=== PATIENT | female | born 1980 ===

== ENCOUNTER 2018-04-19 08:50 | Inpatient (IN) | payer MEDICAID, OTHER ==
[2018-04-19 09:06] VITALS: BMI 31.8
--- NOTE | 2018-04-19 10:20 | ED PDOC ---
HPI: Psych/Substance Abuse Time Seen by Provider: 04/19/18 09:30 Chief Complaint (Nursing): Psychiatric Evaluation Chief Complaint (Provider): Psychiatric evaluation History Per: Patient History/Exam Limitations: no limitations Onset/Duration Of Symptoms: Days (yesterday) Current Symptoms Are (Timing): Still Present Additional Complaint(s): 37 year old female presents to the ED complaining of hearing voice since yesterday. Patient reports the voices do not tell her to do anything and the voices have been on and off for a long time. She has been taking medications for psychiatric problems. Denies suicidal ideation, homicidal ideation, depression, and anxiety. Patient has no medical complaints at this time. Past Medical History Reviewed: Historical Data, Nursing Documentation, Vital Signs Vital Signs: Last Vital Signs Temp 98.3 F 04/19/18 09:04 Pulse 106 H 04/19/18 09:04 Resp 18 04/19/18 09:04 BP 95/62 L 04/19/18 09:04 Pulse Ox 95 04/19/18 09:04 - Medical History PMH: Schizophrenia Denies: Diabetes, Hepatitis, HIV, HTN, Chronic Kidney Disease, Seizures, Sexually Transmitted Disease - Family History Family History: States: Unknown Family Hx - Social History Alcohol: None Drugs: Denies - Home Medications Home Medications: Ambulatory Orders Medication Instructions Recorded Divalproex Sodium [Divalproex 500 mg PO HS 02/18/17 Sodium ER] Olanzapine [Zyprexa] 15 mg PO HS 02/18/17 - Allergies Allergies/Adverse Reactions: Allergies Allergy/AdvReac Type Severity Reaction Status Date / Time paliperidone [From Invega] Allergy FATIGUE Verified 04/20/18 06:24 Review of Systems ROS Statement: Except As Marked, All Systems Reviewed And Found Negative Psych: Positive for: Other (Hearing voices). Negative for: Anxiety, Depression , Suicidal ideation (and homicidal ideation) Physical Exam - Reviewed Nursing Documentation Reviewed: Yes Vital Signs Reviewed: Yes - Physical Exam Appears: Positive for: Non-toxic, No Acute Distress Head Exam: Positive for: ATRAUMATIC, NORMOCEPHALIC Skin: Positive for: Normal Color, Warm, Dry Eye Exam: Positive for: Normal appearance Neck: Positive for: Normal, Painless ROM Cardiovascular/Chest: Positive for: Regular Rate, Rhythm. Negative for: Murmur Respiratory: Positive for: Normal Breath Sounds. Negative for: Wheezing, Respiratory Distress Extremity: Positive for: Normal ROM Neurologic/Psych: Positive for: Alert, Oriented. Negative for: Motor/Sensory Deficits - Laboratory Results Result Diagrams: 04/19/18 15:08 04/19/18 15:08 - ECG O2 Sat by Pulse Oximetry: 95 (RA) Pulse Ox Interpretation: Normal Medical Decision Making Medical Decision Making: Initial Impression: Auditory hallucination, hearing voices Initial Plan: Crisis evaluation Vital signs are stable. Labs reviewed. In my opinion there are no current acute medical conditions that contraindicate the placement of this patient in a psychiatric unit. Time: 1357 CXR RESULTS FINDINGS: LUNGS: No active pulmonary disease. PLEURA: No significant pleural effusion identified. No pneumothorax apparent. CARDIOVASCULAR: Normal. OSSEOUS STRUCTURES: No significant abnormalities. VISUALIZED UPPER ABDOMEN: Normal. OTHER FINDINGS: None. IMPRESSION: No active disease. Scribe Attestation: Documented by Bishnu Lorenzo acting as a scribe for Lynette Vera MD. Provider Scribe Attestation: All medical record entries made by the Scribe were at my direction and personally dictated by me. I have reviewed the chart and agree that the record accurately reflects my personal performance of the history, physical exam, medical decision making, and the department course for this patient. I have also personally directed, reviewed, and agree with the discharge instructions and disposition. Disposition - Clinical Impression Clinical Impression: Schizophrenia - Patient ED Disposition Is Patient to be Admitted: Yes Counseled Patient/Family Regarding: Studies Performed, Diagnosis - Disposition Disposition Time: 18:00 Condition: FAIR - Pt Status Changed To: Hospital Disposition Of: Inpatient - Admit Certification Admit to Inpatient:: After my assessment, the patient will require hospitalization for at least two midnights. This is because of the severity of symptoms shown, intensity of services needed, and/or the medical risk in this patient being treated as an outpatient. - POA Present On Arrival: None
--- NOTE | 2018-04-19 13:39 | RAD ---
Date of service: 04/19/2018 HISTORY: medical clearance COMPARISON: 02/18/2017 TECHNIQUE: Chest PA and lateral FINDINGS: LUNGS: No active pulmonary disease. PLEURA: No significant pleural effusion identified. No pneumothorax apparent. CARDIOVASCULAR: Normal. OSSEOUS STRUCTURES: No significant abnormalities. VISUALIZED UPPER ABDOMEN: Normal. OTHER FINDINGS: None. IMPRESSION: No active disease.
[2018-04-19 15:18] LABS: BASO % 0.4 % (0.0-2.0); EOS # 0.1 K/uL (0.0-0.7); EOS % 1.4 % (0.0-4.0); HEMOGLOBIN 11.6 g/dL (12.0-16.0); LYMPH # 1.7 K/uL (1.0-4.3); LYMPH % 18.2 % (20.0-40.0); MEAN CELL VOLUME 90.7 fl (81.0-99.0); MEAN CORPUSCULAR HEMOGLOBIN 30.3 pg (27.0-31.0); MEAN CORPUSCULAR HGB CONC 33.5 g/dL (33.0-37.0); MONO % 10.8 % (0.0-10.0); NEUT # 6.3 K/uL (1.8-7.0); NEUT % 69.2 % (50.0-75.0); RBC 3.82 Mil/uL (3.80-5.20); RED CELL DISTRIBUTION WIDTH 13.9 % (11.5-14.5); WHITE BLOOD COUNT 9.1 K/uL (4.8-10.8)
[2018-04-19 15:29] LABS: BLOOD UREA NITROGEN 10 mg/dl (7-17); GFR NON-AFRICAN AMERICAN > 60
[2018-04-19 15:46] LABS: BARBITURATES, UR NEGATIVE (NEGATIVE); BENZODIAZEPINES, UR NEGATIVE (NEGATIVE); OPIATES, UR NEGATIVE (NEGATIVE); PHENCYCLIDINE, UR NEGATIVE (NEGATIVE)
[2018-04-19] MEDS ORDERED: Alum-Mag Hydrox-Simethicone Susp (30 mL) PO PRN (23:06)
[2018-04-19] MEDS ORDERED: DiphenhydrAMINE 50 mg/ml Inj IM PRN (23:06)
[2018-04-19] MEDS ORDERED: Magnesium Hydroxide Susp 30 ml UD PO PRN (23:06)
--- NOTE | 2018-04-20 00:19 | PCM.BM ---
<JamilBrittany C - Last Filed: 04/20/18 00:17> Treatment Plan Problems - Problems identified on initial assessmt Medication nonadherence Date Initiated: 04/20/18 Time Initiated: 00:18 Assessment reference: NA Status: Active Auditory Hallucinations Date Initiated: 04/20/18 Time Initiated: 00:18 Assessment reference: NA Status: Active Treatment assets and liabiliti Patient Assests: cooperative, self-reliant, ADL independent, physically healthy , good support system, negotiates basic needs Patient Liabilities: other (Medication non-compliance) - Milieu Protocol Maintain good personal hygiene: daily Encourage regular showers, every shift Remind patient to perform daily oral care Conduct patient checks and document Observation sheet: Q15 minutes Maintain personal safety: every shift Educate patient to report safety concerns to staff, every shift Monitor environment for contraband/sharps Medication safety: Monitor for expected outcome, potential side effects: every shift, Assess barriers to learning: every shift, Assess readiness for medication education: every shift <Rafiq Roberts - Last Filed: 04/24/18 14:09> Family Contact Family involvement: Family/SO is involved Family contact: Patient agrees to contact, Family has been contacted by patient , Telephone contact initiated by staff Family contact name: Kevin Mccormack [phone] Family contacted how many times per week?: 2 Family contact comment: Computing Architect spoke with pt's , Kevin ([phone]), who reported that he did not even know that pt was at the hospital until she called him from the unit. Kevin reported that he was unaware that pt was even having symptoms except for seeing her talk to herself "a little" the day before admission, but he was not concerned. Kevin reported that he has spoken to the pt on the unit and he feels she is "ok." Kevin reported he would like to pick pt up once she is stabilized. Computing Architect explained that Depakote level will be taken on to ensure that medication is at a therapeutic level. - Goals for Treatment Patient goals for treatment: Pt offered no goals for herself at this time, however, pt lacks apparent insight into her illness. Discharge/Continuing Care - Education Needs Education Needs: Family Medication, Family Diagnosis/Disease Process, Family Coping Skills, Family Community resources, Family Aftercare Safety Plan, Patient Medication, Patient Diagnosis/Disease Process, Patient Coping Skills, Patient Community resources, Patient Aftercare Safety Plan - Discharge Discharge Criteria: Tolerates medication w/o severe side effects, Free of paranoid thoughts, Free of agitation, Normal sleep pattern, Ability to care for self, Reduction of target symptoms Discharge to:: Home, With Family - Treatment Team Participation Patient/Family/SO Statement: 04/24/18 14:12 Pt was seen in treatment on 04/23/18. Pt denied any questions or concerns and was vague at presentation. Pt reported that she does talk to herself and this is not due to hallucinations, but only a coping skill she has for herself. Medications and follow-up discussed. Discussed with Family/SO: Yes Was Patient/Family/SO present at Treatment Team Meeting: Yes <Gael Beth - Last Filed: 04/26/18 08:41> - Diagnosis (1) Auditory hallucination Status: Acute Interventions: pharmacotherapy 04/26/18 08:40
[2018-04-20] MEDS: Levothyroxine 75 MCG TAB PO SCH (07:50)
[2018-04-20 08:24] LABS: T4 8.2 ug/dl (5.5-11.0)
--- NOTE | 2018-04-20 09:05 | PCM.PSYCH ---
Initial Psychiatric Evaluation - Initial Psychiatric Evaluation Type of Admission: Voluntary Legal Status: Capacity Chief Complaint (in patient's own words): pt has h/o schizoaffective disorder who has been admitted because of hearing voices telling her she is the bride of bala and pt has been noncompliant with meds.pt has been prescribed zyprexa 15 mg hs and depakote 1000 mg hs Current Medications: Active Medications Generic Name Dose Route Start Last Admin Trade Name Freq PRN Reason Stop Dose Admin Acetaminophen 650 mg 04/19/18 23:06 Tylenol 325mg Tab PO Q4 PRN Pain, moderate (4-7) Al Hydrox/Mg Hydrox/Simethicone 30 ml 04/19/18 23:06 Maalox Plus 30 Ml PO Q4 PRN Dyspepsia Diphenhydramine HCl 50 mg 04/19/18 23:06 Benadryl IM Q6 PRN Extrapyramidal S/S Unable PO Diphenhydramine HCl 50 mg 04/19/18 23:11 Benadryl PO HS PRN Sleep Haloperidol 5 mg 04/19/18 23:06 Haldol PO Q4 PRN Agitation Haloperidol Lactate 5 mg 04/19/18 23:06 Haldol IM Q4 PRN Agitation, Unable to Take PO Levothyroxine Sodium 75 mcg 04/20/18 06:30 04/20/18 07:50 Synthroid PO 75 mcg DAILY@0630 STEFANIE Administration Lorazepam 1 mg 04/19/18 23:18 Ativan PO Q6H PRN Agitation Magnesium Hydroxide 30 ml 04/19/18 23:06 Milk Of Magnesia PO HS PRN Constipation Past Psychiatric History - Past Psychiatric History Previous Treatment History: Inpatient (8 times) At [facility]: 8 times ,last admitted [place] [facility] [place] last time due to psychosis Nature of Treatment: psychosis History of Abuse: pt denies History of ETOH/Drug Use: pt denies History of Family Illness: denies Pertinent Medical Hx (Current Medical&Sleep Prob, Allergies): Allergies Allergy/AdvReac Type Severity Reaction Status Date / Time paliperidone [From Invega] Allergy FATIGUE Verified 04/20/18 06:24 Divalproex Sodium [Divalproex Sodium ER] 500 mg PO HS 02/18/17 Olanzapine [Zyprexa] 15 mg PO HS 02/18/17 hypothyroidism Review of Systems - Review of Systems All systems: reviewed and no additional remarkable complaints except Mental Status Examination - Personal Presentation Personal Presentation: Looks stated age - Affect Affect: Constricted - Motor Activity Motor Activity: Other - Reliability in Providing Information Reliability in Providing Information: Poor, due to alteration in thoughts - Speech Speech: Disorganized - Mood Mood: Anxious - Formal Thought Process Formal Thought Process: Hallucinations, Paranoia - Hallucinations/Delusions Hallucinations: Auditory - Obsessions/Compulsions Obsessions: No Compulsions: No - Cognitive Functions Orientation: Person, Place, Situation, Time Attention/Concentration: Easily distracted Abstract Thinking: Gustine Memory: Recent intact, as evidence by: Ability to recall events of the day, Remote intact, as evidenced by: Ability to recall historical events - Risk Risk: Diminished functioning - Strength & Assets Inventory Strength & Assets Inventory: Family support DSM 5 DX - DSM 5 DSM 5 Diagnosis: schizaffective disorder ,bipolar - Recommended/Plan of Treatment Treatment Recommendations and Plan of Treatment: will restart depakote and zyprexa and check valproic acid levels. hospitalist consult to adjust meds for hypothyroidism
--- NOTE | 2018-04-20 09:44 | CARD ---
APPROVED REPORT Date of service: 04/19/2018 <Conclusion> Normal sinus rhythm T wave abnormality, consider anterior ischemia Abnormal ECG
--- NOTE | 2018-04-20 18:25 | CP.PCM.CON ---
History of Present Illness - History of Present Illness History of Present Illness: 37 yo female with history of schizoaffective DO admitted to psyche unit because of hearing voices. Review of Systems - Review of Systems All systems: reviewed and no additional remarkable complaints except (aside from those mentioned above, 12 point system review were negative by me) Past Patient History - Past Social History Smoking Status: Never Smoked Chewing Tobacco Use: No Cigar Use: No Alcohol: None Drugs: Denies - CARDIAC Hx Cardiac Disorders: No Hx Hypertension: No - PULMONARY Hx Respiratory Disorders: No Hx Tuberculosis: No - NEUROLOGICAL Hx Neurological Disorder: No Hx Seizures: No - HEENT Hx HEENT Problems: No - RENAL Hx Chronic Kidney Disease: No - ENDOCRINE/METABOLIC Hx Endocrine Disorders: Yes Other/Comment: Thyroid problem- pt unsure if hypo or hyper - HEMATOLOGICAL/ONCOLOGICAL Hx Blood Disorders: No Hx Human Immunodeficiency Virus (HIV): No - INTEGUMENTARY Hx Dermatological Problems: No - MUSCULOSKELETAL/RHEUMATOLOGICAL Hx Musculoskeletal Disorders: No - GASTROINTESTINAL Hx Gastrointestinal Disorders: No - GENITOURINARY/GYNECOLOGICAL Hx Genitourinary Disorders: No Hx Sexually Transmitted Disorders: No - PSYCHIATRIC Hx Substance Use: No - SURGICAL HISTORY Hx Surgeries: No - ANESTHESIA Hx Anesthesia: No Meds Allergies/Adverse Reactions: Allergies Allergy/AdvReac Type Severity Reaction Status Date / Time paliperidone [From Invega] Allergy FATIGUE Verified 04/20/18 06:24 - Medications Medications: Current Medications Acetaminophen (Tylenol 325mg Tab) 650 mg PO Q4 PRN PRN Reason: Pain, moderate (4-7) Al Hydrox/Mg Hydrox/Simethicone (Maalox Plus 30 Ml) 30 ml PO Q4 PRN PRN Reason: Dyspepsia Diphenhydramine HCl (Benadryl) 50 mg IM Q6 PRN PRN Reason: Extrapyramidal S/S Unable PO Diphenhydramine HCl (Benadryl) 50 mg PO HS PRN PRN Reason: Sleep Divalproex Sodium (Depakote Er(Once Daily)) 1,000 mg PO HS STEFANIE Haloperidol (Haldol) 5 mg PO Q4 PRN PRN Reason: Agitation Haloperidol Lactate (Haldol) 5 mg IM Q4 PRN PRN Reason: Agitation, Unable to Take PO Levothyroxine Sodium (Synthroid) 75 mcg PO DAILY@0630 [facility] Last Admin: 04/20/18 07:50 Dose: 75 mcg Lorazepam (Ativan) 1 mg PO Q6H PRN PRN Reason: Agitation Magnesium Hydroxide (Milk Of Magnesia) 30 ml PO HS PRN PRN Reason: Constipation Olanzapine (Zyprexa) 15 mg PO HS STEFANIE Physical Exam - Constitutional Appears: No Acute Distress - Head Exam Head Exam: ATRAUMATIC - Eye Exam Eye Exam: absent: Scleral icterus - ENT Exam ENT Exam: Mucous Membranes Moist - Neck Exam Neck exam: Negative for: Meningismus - Respiratory Exam Respiratory Exam: absent: Rales, Rhonchi, Wheezes, Respiratory Distress - Cardiovascular Exam Cardiovascular Exam: REGULAR RHYTHM, +S1, +S2 - GI/Abdominal Exam GI & Abdominal Exam: Soft (bulging tummy). absent: Tenderness - Rectal Exam Rectal Exam: Deferred - Extremities Exam Extremities exam: Negative for: calf tenderness, pedal edema - Back Exam Back exam: NORMAL INSPECTION - Neurological Exam Neurological exam: Alert, Oriented x3 - Psychiatric Exam Psychiatric exam: Normal Affect - Skin Skin Exam: Dry, Intact Results - Vital Signs Recent Vital Signs: Last Vital Signs Temp 97.7 F 04/20/18 09:00 Pulse 81 04/20/18 09:00 Resp 18 04/20/18 09:00 BP 101/70 04/20/18 09:00 Pulse Ox 100 04/19/18 22:29 - Labs Result Diagrams: 04/19/18 15:08 04/19/18 15:08 Labs: Laboratory Results - last 24 hr 04/20/18 07:00 Triglycerides 164 H Cholesterol 197 LDL Cholesterol Direct 133 H HDL Cholesterol 31 Thyroxine (T4) 8.20 TSH 3rd Generation 6.46 H Assessment & Plan (1) Auditory hallucination Status: Acute Comment: psyche is managing
[2018-04-20 19:28] VITALS: O2SAT 95
[2018-04-20] MEDS: Divalproex 500 mg ER (ONCE DAILY formulation) PO SCH (21:19)
[2018-04-21] MEDS: Levothyroxine 75 MCG TAB PO SCH (06:36)
--- NOTE | 2018-04-21 12:30 | PCM.PYCHPN ---
Psychiatric Progress Note - Psychiatric Progress Note Patient Chief Complaint: pt has h/o schizoaffective disorder who has been admitted because of hearing voices telling her she is the bride of bala and pt has been noncompliant with meds.pt has been prescribed zyprexa 15 mg hs and depakote 1000 mg hs Mental Status Examination - Cognitive Function Orientation: Person, Place, Situation, Time - Mood Mood: Anxious - Affect Affect: Constricted - Formal Thought Process Formal Thought Process: Hallucinations, Paranoia - Homicidal Ideation Homicidal Ideation: No Goal/Treatment Plan - Goal/Treatment Plan Progress Toward Problem(s) and Goals/Treatment Plan: will restart depakote and zyprexa and check valproic acid levels. hospitalist consult to adjust meds for hypothyroidism
[2018-04-21] MEDS: Divalproex 500 mg ER (ONCE DAILY formulation) PO SCH (21:13)
[2018-04-22] MEDS: Levothyroxine 75 MCG TAB PO SCH (06:27)
[2018-04-22] MEDS: Divalproex 500 mg ER (ONCE DAILY formulation) PO SCH (21:06)
[2018-04-23] MEDS: Levothyroxine 75 MCG TAB PO SCH (06:32)
--- NOTE | 2018-04-23 14:41 | PCM.PYCHPN ---
Psychiatric Progress Note - Psychiatric Progress Note Patient seen today, length of contact: pt evaluated discussed with team chart reviewed Patient Chief Complaint: I was not taking my medicine Problems Identified/Issues Discussed: pt on evaluation, guarded, evasive, unkempt, dressed in hospital gown, appears internally preoccupied, denied command hallucinations, but presenting with thought block. isolative needs encouragement to attend groups, denied any current suicidal thoughts, denied side effects of medications DSM 5 Symptoms Update: schizoaffective disorder bipolar Medication Change: No Medical Record Reviewed: Yes Mental Status Examination - Cognitive Function Orientation: Person, Place, Situation, Time Memory: Intact Attention: WNL Concentration: Poor Association: WNL Fund of Knowledge: Poor Decription of patient's judgement and insights: partial insight poor judgment - Mood Mood: Depressed, Anxious - Affect Affect: Constricted - Speech Speech: Soft - Formal Thought Process Formal Thought Process: Hallucinations, Paranoia Psychotic Thoughts and Behaviors: pt reported non command - Homicidal Ideation Homicidal Ideation: No
--- NOTE | 2018-04-23 14:58 | PCM.PYCHPN ---
Psychiatric Progress Note - Psychiatric Progress Note Patient seen today, length of contact: pt evaluated discussed with team chart reviewed Patient Chief Complaint: the voices now tell me I am a good girl Problems Identified/Issues Discussed: pt evaluated with treatment team, continues to be guarded and evasive in reference to her psychiatric history, pt denied perceptual disturbances, yet observed by staff talking to self and responding to internal stimuli, presenting with thought blocking , not attending to personal hygiene discussed with pt increasing zyprexa to 20mg,encouraged pt to attend groups consent obtained to speak to for collateral information pt denied command hallucinations denied suicidal or homicidal ideation DSM 5 Symptoms Update: schizoaffective disorder depressed Medication Change: Yes (increse zypexa ) Medical Record Reviewed: Yes Mental Status Examination - Cognitive Function Orientation: Person, Place, Situation, Time Memory: Intact Attention: WNL Concentration: Poor Association: WNL Fund of Knowledge: Poor Decription of patient's judgement and insights: partial insight poor judgment - Mood Mood: Depressed, Anxious - Affect Affect: Constricted - Speech Speech: Soft - Formal Thought Process Formal Thought Process: Hallucinations, Paranoia Psychotic Thoughts and Behaviors: pt reported non command a, internally preoccupieduditory hallucinations - Suicidal Ideation Suicidal Ideation: No - Homicidal Ideation Homicidal Ideation: No Goal/Treatment Plan - Goal/Treatment Plan Need for Continued Stay: Discharge may exacerbated symptoms, Failed transitioning, Severe functional impairment Progress Toward Problem(s) and Goals/Treatment Plan: increase zyprexa 20mg qhs depakote 1000mg qhs , follow up on depakote level obtain collateral information group and supportive therapy
[2018-04-23] MEDS: Divalproex 500 mg ER (ONCE DAILY formulation) PO SCH (21:01)
[2018-04-24] MEDS: Levothyroxine 75 MCG TAB PO SCH (06:55)
--- NOTE | 2018-04-24 15:34 | PCM.PYCHPN ---
Psychiatric Progress Note - Psychiatric Progress Note Patient seen today, length of contact: pt evaluated discussed with team chart reviewed Patient Chief Complaint: the voices are going away Problems Identified/Issues Discussed: pt evaluated . appears better groomed and attending more to her personal hygiene , reported feeling too sedated with increasing the dose of zyprexa, will be reduced to 15mg qhs , pt more visible on the unit , less isolative, encouraged to attend groups, reported clearing off of the auditory hallucinations, appears less internally preoccupied pt denied command hallucinations denied suicidal or homicidal ideation DSM 5 Symptoms Update: schizoaffective disorder bipolar Medication Change: No Medical Record Reviewed: Yes Mental Status Examination - Cognitive Function Orientation: Person, Place, Situation, Time Memory: Intact Attention: WNL Concentration: WNL Association: WNL Fund of Knowledge: Poor Decription of patient's judgement and insights: partial insight poor judgment - Mood Mood: Depressed, Anxious - Affect Affect: Constricted - Speech Speech: Soft - Formal Thought Process Formal Thought Process: Hallucinations, Paranoia Psychotic Thoughts and Behaviors: pt reported clearing off of the auditory hallucinations - Suicidal Ideation Suicidal Ideation: No - Homicidal Ideation Homicidal Ideation: No Goal/Treatment Plan - Goal/Treatment Plan Need for Continued Stay: Discharge may exacerbated symptoms, Failed transitioning, Severe functional impairment Progress Toward Problem(s) and Goals/Treatment Plan: decrease zyprexa 15mg qhs depakote 1000mg qhs , follow up on depakote level obtain collateral information group and supportive therapy Estimated Date of D/C: 04/26/18
[2018-04-24] MEDS: Divalproex 500 mg ER (ONCE DAILY formulation) PO SCH (21:05)
[2018-04-25] MEDS: Levothyroxine 75 MCG TAB PO SCH (06:24)
--- NOTE | 2018-04-25 15:05 | PCM.PYCHPN ---
Psychiatric Progress Note - Psychiatric Progress Note Patient seen today, length of contact: pt evaluated discussed with team chart reviewed Patient Chief Complaint: I am not hearing voices any more Problems Identified/Issues Discussed: pt evaluated . better groomed and attending more to her personal hygiene, more visible on the unit , less isolative, brighter mood and affect encouraged to attend groups, denied any current auditory hallucinations, pt denied command hallucinations denied suicidal or homicidal ideation DSM 5 Symptoms Update: schizoaffective disorder bipolar Medication Change: No Medical Record Reviewed: Yes Mental Status Examination - Cognitive Function Orientation: Person, Place, Situation, Time Memory: Intact Attention: WNL Concentration: WNL Association: [facility] Fund of Knowledge: Poor Decription of patient's judgement and insights: partial insight poor judgment - Mood Mood: Depressed, Anxious - Affect Affect: Constricted - Speech Speech: Soft - Formal Thought Process Formal Thought Process: Hallucinations, Paranoia Psychotic Thoughts and Behaviors: pt reported clearing off of the auditory hallucinations - Suicidal Ideation Suicidal Ideation: No - Homicidal Ideation Homicidal Ideation: No Goal/Treatment Plan - Goal/Treatment Plan Need for Continued Stay: Discharge may exacerbated symptoms, Failed transitioning, Severe functional impairment Progress Toward Problem(s) and Goals/Treatment Plan: zyprexa 15mg qhs depakote 1000mg qhs , depakote level 65 group and supportive therapy Estimated Date of D/C: 04/26/18
[2018-04-25 17:26] VITALS: RESP 18
[2018-04-25] MEDS: Divalproex 500 mg ER (ONCE DAILY formulation) PO SCH (21:11)
[2018-04-26] MEDS: Levothyroxine 75 MCG TAB PO SCH (06:26)
[2018-04-26 09:17] VITALS: BP 106/70; PULSE 76; TEMP 97.2
--- NOTE | 2018-04-26 14:15 | PCM.PYCHDC ---
Mental Status Examination - Mental Status Examination Orientation: Person, Place, Situation Memory: Intact Mood: Neutral Affect: Broad Speech: Appropriate Attention: WNL Concentration: WNL Association: WNL Fund of Knowledge: WNL Formal Thought Process: No Impairment Description of patient's judgement and insight: partial insight poor judgment Psychotic Thoughts and Behaviors: pt on discharge denied any current psychotic symptoms, non elicited Suicidal Ideation: No Current Homicidal Ideation?: No Discharge Summary - Discharge Note Reason for Hospitalization: pt has h/o schizoaffective disorder who has been admitted because of hearing voices telling her she is the bride of bala and pt has been noncompliant with meds.pt has been prescribed zyprexa 15 mg hs and depakote 1000 mg hs Psychiatric History (includes Medical, Family, Personal Hx): psychosis Consultations:: List each consultation separately and include: 1. Reason for request. 2. Findings. 3. Follow-up Summary of Hospital Course include:: 1. Description of specific treatment plan utilized for patients during their course of treatmen. 2. Summarize the time- course for resolution of acute symptoms and/or regressed behaviors. 3. Describe issues identified and worked on during hospitalization. 4. Describe medication utilized. 5. Describe medical problems identified and treated. 6. Reassessment of suicide risk Summary of Hospital Course: pt on admission was isolating herself in her room, internally preoccupied , irritable, experiencing non command auditory halluciantions pt was started on depakote it was gradually increased to 1000mg daily she was also started on zyprexa, it was gradually increased to 15mg qhs CBT group and supportive therapy provided, pt gradually presented with brighter affect, reported clearing off of the auditory hallucinations, was compliant with treatment , no reported side effects , depakote level noted 60 on discharge pt mental status was stable, denied suicidal or homicidal ideation denied perceptual disturbances follow up arranged by social media analyst at [facility] partial program - Diagnosis (1) Auditory hallucination Status: Acute - Final Diagnosis (DSM 5) Condition upon Discharge: FAIR DSM 5: schizoaffective disorder bipolar Disposition: HOME/ ROUTINE Follow-up Treatment Plan: zyprexa 15mg qhs depakote 1000mg qhs , depakote level 65 group and supportive therapy Prescriptions/Medication Reconciliation: Divalproex [Depakote ER(ONCE DAILY)] 1,000 mg PO HS 30 Days #90 ter Levothyroxine [Synthroid] 75 mcg PO DAILY@0630 30 Days #30 tab OLANZapine [Zyprexa] 15 mg PO DAILY 30 Days #45 tab - Smoking Cessation Smoking Cessation Medication prescribed: No - Antipsychotic Medications Pt discharged on 2 or more routine antipsychotic medications: No
== END 2018-04-26 10:13 | disposition home or self-care (01) | DRG 430 ==
LOC: H.ER 08:50 → H.ERHOLD 18:04 → H.PSYCH 22:51
PROVIDERS: ADMIT Psychiatry & Neurology Psychiatry; ATTEND Psychiatry & Neurology Psychiatry
PROC: GZHZZZZ Group Psychotherapy (ICD-10-PCS; principal; 2018-04-19)
PROC: GZ58ZZZ Individual Psychotherapy, Cognitive-Behavioral (ICD-10-PCS; 2018-04-19)
PROC: GZ56ZZZ Individual Psychotherapy, Supportive (ICD-10-PCS; 2018-04-19)
DX: F25.0 Schizoaffective disorder, bipolar type (principal); E03.9 Hypothyroidism, unspecified; Z91.14 Patient's other noncompliance with medication regimen

== ENCOUNTER 2018-05-29 21:25 | Inpatient (IN) | payer MEDICAID, OTHER ==
[2018-05-29 21:25] VITALS: BMI 31.8
[2018-05-29 21:32] VITALS: O2SAT 98
--- NOTE | 2018-05-29 22:33 | ED PDOC ---
HPI: Psych/Substance Abuse Time Seen by Provider: 05/29/18 21:35 Chief Complaint (Nursing): Psychiatric Evaluation Chief Complaint (Provider): crisis eval History Per: Patient, EMS Additional Complaint(s): 37 y/o female brought in by EMS for psych evaluation. Patient was found wandering the streets acting bizarre, telling them she was Pato's . Patient states she is still hearing voices. Patient slow to respond to questions; appears internally preoccupied. Denies suicidal/homicidal ideations, acute physical complaints. Compliant with psych meds. Past Medical History Reviewed: Historical Data, Nursing Documentation, Vital Signs Vital Signs: Last Vital Signs Temp 98.5 F 05/29/18 21:28 Pulse 115 H 05/29/18 21:28 Resp 18 05/29/18 21:28 BP 126/82 05/29/18 21:28 Pulse Ox 98 05/29/18 21:28 - Medical History PMH: Bipolar Disorder, Schizophrenia Denies: Diabetes, Hepatitis, HIV, HTN, Chronic Kidney Disease, Seizures, Sexually Transmitted Disease - Surgical History Surgical History: No Surg Hx - Family History Family History: States: Unknown Family Hx - Home Medications Home Medications: Ambulatory Orders Medication Instructions Recorded RX: Divalproex [Depakote ER(ONCE 1,000 mg PO HS 30 Days #90 ter 04/26/18 DAILY)] RX: Levothyroxine [Synthroid] 75 mcg PO DAILY@0630 30 Days #30 04/26/18 tab RX: OLANZapine [Zyprexa] 15 mg PO DAILY 30 Days #45 tab 04/26/18 - Allergies Allergies/Adverse Reactions: Allergies Allergy/AdvReac Type Severity Reaction Status Date / Time paliperidone [From Invega] Allergy FATIGUE Verified 04/20/18 06:24 Review of Systems ROS Statement: Except As Marked, All Systems Reviewed And Found Negative Psych: Positive for: Psychosis Physical Exam - Reviewed Nursing Documentation Reviewed: Yes Vital Signs Reviewed: Yes - Physical Exam Appears: Positive for: Well, Non-toxic, No Acute Distress Head Exam: Positive for: ATRAUMATIC, NORMAL INSPECTION, NORMOCEPHALIC Skin: Positive for: Normal Color Eye Exam: Positive for: Normal appearance ENT: Positive for: Normal ENT Inspection Cardiovascular/Chest: Positive for: Regular Rate, Rhythm Respiratory: Positive for: Normal Breath Sounds Gastrointestinal/Abdominal: Positive for: Normal Exam Back: Positive for: Normal Inspection Extremity: Positive for: Normal ROM Neurologic/Psych: Positive for: Alert, Oriented (x3), Mood/Affect (flat, internally preoccupid) - Laboratory Results Result Diagrams: 05/29/18 22:51 05/29/18 22:51 - ECG ECG: Positive for: Viewed By Me (reviewed by ED attending) ECG Rhythm: Positive for: Sinus Rhythm O2 Sat by Pulse Oximetry: 98 - Radiology X-Ray: Viewed By Me X-Ray Interpretation: No Acute Disease - Progress ED Course And Treament: labs, urine, crisis eval Patient evaluated by adult protective caseworker; to be admitted to [facility] as per Dr. Hartmann EKG, cxr ordered Macrobid PO ordered for UTI, C&S sent Medical Decision Making Medical Decision Making: Patient medically stable for psych admission Disposition - Clinical Impression Clinical Impression: Schizophrenia, UTI (urinary tract infection) - Patient ED Disposition Is Patient to be Admitted: Yes - Disposition Disposition Time: 01:56 Condition: STABLE
[2018-05-29 22:54] LABS: BASO # 0.1 K/uL (0.0-0.2); BASO % 0.6 % (0.0-2.0); EOS # 0.1 K/uL (0.0-0.7); EOS % 0.7 % (0.0-4.0); HEMOGLOBIN 12.9 g/dL (12.0-16.0); LYMPH # 2.5 K/uL (1.0-4.3); LYMPH % 20.8 % (20.0-40.0); MEAN CORPUSCULAR HEMOGLOBIN 29.9 pg (27.0-31.0); MEAN CORPUSCULAR HGB CONC 33.6 g/dL (33.0-37.0); MEAN PLATELET VOLUME 9.1 fl (7.2-11.7); MONO # 0.8 K/uL (0.0-0.8); MONO % 6.3 % (0.0-10.0); NEUT # 8.6 K/uL (1.8-7.0); NEUT % 71.6 % (50.0-75.0); RBC 4.33 Mil/uL (3.80-5.20)
[2018-05-29 23:05] LABS: ALB/GLOB RATIO 1.1 (1.0-2.1); ALBUMIN 4.3 g/dL (3.5-5.0); ALT/SGPT 137 U/L (9-52); AST/SGOT 98 U/L (14-36); BLOOD UREA NITROGEN 20 mg/dl (7-17); CALCIUM 9.9 mg/dL (8.4-10.2); GFR NON-AFRICAN AMERICAN > 60
[2018-05-30] MEDS ORDERED: Magnesium Hydroxide Susp 30 ml UD PO PRN (04:21)
[2018-05-30] MEDS ORDERED: DiphenhydrAMINE 50 mg/ml Inj IM PRN (04:21)
[2018-05-30] MEDS ORDERED: Alum-Mag Hydrox-Simethicone Susp (30 mL) PO PRN (04:21)
[2018-05-30 04:32] LABS: SQUAMOUS EPITHIAL 5 /hpf (0-5); URINE BILIRUBIN NEGATIVE (NEGATIVE); URINE BLOOD MODERATE (NEGATIVE); URINE CLARITY CLOUDY (Clear); URINE COLOR YELLOW (YELLOW); URINE GLUCOSE (UA) NEG (Normal); URINE LEUKOCYTE ESTERASE MOD Leu/uL (Negative); URINE PROTEIN NEGATIVE (NEGATIVE); URINE UROBILINOGEN 0.2-1.0 mg/dL (0.2-1.0)
--- NOTE | 2018-05-30 04:44 | PCM.BM ---
<JamilBrittany C - Last Filed: 05/30/18 04:42> Treatment Plan Problems - Problems identified on initial assessmt Auditory Hallucinations Date Initiated: 05/30/18 Time Initiated: 04:43 Assessment reference: NA Status: Active Medication nonadherence Date Initiated: 05/30/18 Time Initiated: 04:44 Assessment reference: NA Status: Active Treatment assets and liabiliti Patient Assests: cooperative, self-reliant, ADL independent, physically healthy, good support system, negotiates basic needs Patient Liabilities: relationship conflicts (medication nonadherence), other (medication nonadherence) - Milieu Protocol Maintain good personal hygiene: daily Encourage regular showers, every shift Encourage regular showers, every shift Remind patient to perform daily oral care Conduct patient checks and document Observation sheet: Q15 minutes Maintain personal safety: every shift Educate patient to report safety concerns to staff, every shift Monitor environment for contraband/sharps Medication safety: Monitor for expected outcome, potential side effects: every shift, Assess barriers to learning: every shift, Assess readiness for medication education: every shift <Rafiq Roberts - Last Filed: 05/31/18 14:56> Treatment Plan Problems - Problems identified on initial assessmt Auditory Hallucinations Date Initiated: 05/30/18 Time Initiated: 04:43 Assessment reference: NA Status: Active Medication nonadherence Date Initiated: 05/30/18 Time Initiated: 04:44 Assessment reference: NA Status: Active Delusions Date Initiated: 05/30/18 Time Initiated: 13:38 Assessment reference: NA Status: Active Family Contact Family involvement: Family/SO is involved Family contact: Patient agrees to contact, Family has been contacted by patient Family contact name: Kevin - Family contacted how many times per week?: 3 Family contact comment: [phone] - Goals for Treatment Patient goals for treatment: Pt unable to establish goals at this time as she is severely manic and psychotic with paranoia and internal and external preoccupation. Discharge/Continuing Care - Education Needs Education Needs: Patient Medication, Patient Diagnosis/Disease Process, Patient Coping Skills, Patient Aftercare Safety Plan - Discharge Discharge Criteria: Tolerates medication w/o severe side effects, Free of Suicidal thoughts, Free of paranoid thoughts, Free of agitation, Normal sleep pattern, Ability to care for self, Reduction of target symptoms Discharge to:: Home, With Family, Detention - Treatment Team Participation Patient/Family/SO Statement: 05/31/18 14:58 Pt assessed in team. Pt presented as floridly psychotic with manic features. pt observed internally preoccupied with tangential, circumstantial and disorganized speech. Pt intrusive and observed touching Dr. Beth at times. Pt broke into song. Pt has labile speech and mood. Pt not agreeable to anything stronger than Zyprexa at this time. Pt reported she is Pato and treatment team "will take me in your mouth." Pt reported her kicked her out and she is currently homeless. Pt reported "everyone is my family." Discussed with Family/SO: No Was Patient/Family/SO present at Treatment Team Meeting: Yes <Gael Beth - Last Filed: 06/03/18 15:16> - Diagnosis (1) Disorganized behavior Status: Acute Interventions: pharmacotherapy 06/03/18 15:16
[2018-05-30 04:52] LABS: BARBITURATES, UR NEGATIVE (NEGATIVE); BENZODIAZEPINES, UR NEGATIVE (NEGATIVE); OPIATES, UR NEGATIVE (NEGATIVE); PHENCYCLIDINE, UR NEGATIVE (NEGATIVE)
--- NOTE | 2018-05-30 07:52 | CARD ---
APPROVED REPORT Date of service: 05/30/2018 EKG Measurement Heart [id number] <Conclusion> Normal sinus rhythm with sinus arrhythmia Normal ECG
--- NOTE | 2018-05-30 08:42 | PCM.PSYCH ---
Initial Psychiatric Evaluation - Initial Psychiatric Evaluation Type of Admission: Voluntary Legal Status: Capacity Chief Complaint (in patient's own words): I know bala loves me History of Present Illness and Precipitating Events: pt is 37 ys old female with previous psychiatric diagnosis of schizoaffective disorder bipolar type, non compliant with medications or follow up, brought to ER by EMS after exhibiting disorganized behavior on the street pt has been decompensating, verbally aggressive to family, poor sleep,wandering on the street , having spending sprees, not attending to her personal hygiene on evaluation, pt presenting with disorganized thought process , internally preoccupied with thought blocking and appears responding to internal stimuli , pt stated she hears god talking to her telling what to do and that he loves her, with restoration preoccupation, pt also having labile affect at one instance chanting and laughing loud alternating with becoming angry, irritable, domineering and verbally threatening stating she does not need help pt denied command hallucinations, denied suicidal or homicidal ideation Current Medications: Active Medications Generic Name Dose Route Start Last Admin Trade Name Freq PRN Reason Stop Dose Admin Acetaminophen 650 mg 05/30/18 04:21 Tylenol 325mg Tab PO Q4 PRN Pain, moderate (4-7) Al Hydrox/Mg Hydrox/Simethicone 30 ml 05/30/18 04:21 Maalox Plus 30 Ml PO Q4 PRN Dyspepsia Diphenhydramine HCl 50 mg 05/30/18 04:21 Benadryl IM Q6 PRN Extrapyramidal S/S Unable PO Diphenhydramine HCl 50 mg 05/30/18 04:21 Benadryl PO Q6 PRN Extrapyramidal Symptoms Diphenhydramine HCl 50 mg 05/30/18 04:27 Benadryl PO HS PRN Sleep Haloperidol 5 mg 05/30/18 04:21 Haldol PO Q4 PRN Agitation Haloperidol Lactate 5 mg 05/30/18 04:21 Haldol IM Q4 PRN Agitation, Unable to Take PO Lorazepam 2 mg 05/30/18 04:21 Ativan IM Q4 PRN Anxiety/Agitation,Unable PO Lorazepam 1 mg 05/30/18 04:21 Ativan PO Q8 PRN Anxiety/Agitation Magnesium Hydroxide 30 ml 05/30/18 04:21 Milk Of Magnesia PO HS PRN Constipation Olanzapine 5 mg 05/30/18 09:00 Zyprexa Zydis PO DAILY STEFANIE Olanzapine 5 mg 05/30/18 22:00 Zyprexa Zydis PO HS [facility] Past Psychiatric History - Past Psychiatric History Explanation of prior treatment: multiple hospitalizations, hx of non compliance History of ETOH/Drug Use: denied History of Family Illness: denied Pertinent Medical Hx (Current Medical&Sleep Prob, Allergies): Allergies Allergy/AdvReac Type Severity Reaction Status Date / Time paliperidone [From Invega] Allergy FATIGUE Verified 04/20/18 06:24 Divalproex [Depakote ER(ONCE DAILY)] 1,000 mg PO HS 30 Days #90 ter 04/26/18 Levothyroxine [Synthroid] 75 mcg PO DAILY@30 30 Days #30 tab 04/26/18 OLANZapine [Zyprexa] 15 mg PO DAILY 30 Days #45 tab 04/26/18 Mental Status Examination - Personal Presentation Personal Presentation: Looks stated age - Affect Affect: Other Additional comments: labile - Motor Activity Motor Activity: Psychomotor Agitation - Reliability in Providing Information Reliability in Providing Information: Poor, due to alteration in thoughts, Poor, due to altered mood - Speech Speech: Irrelevant, Tangential - Mood Mood: Euphoric - Formal Thought Process Formal Thought Process: Hallucinations, Delusions, Paranoia, Loosening of associations, Flight of ideas - Hallucinations/Delusions Hallucinations: Auditory - Obsessions/Compulsions Obsessions: No Compulsions: No - Cognitive Functions Orientation: Person Sensorium: Alert Attention/Concentration: Easily distracted Abstract Thinking: Stephens Judgement: Imparied, as evidence by: Poor judgement, Imparied, as evidence by: Lack of insight into illness - Risk Risk: Elopement, Diminished functioning - Strength & Assets Inventory Strength & Assets Inventory: Family support - Limitations Additional comments: poor compliance DSM 5 DX - DSM 5 DSM 5 Diagnosis: schizoaffective disorder bipolar type - Recommended/Plan of Treatment Treatment Recommendations and Plan of Treatment: start zyprexa 5mg bid medical consult for UTI group and supportive therapy
[2018-05-30] MEDS: OLANZapine 5 mg Disintegrating Tab PO SCH (09:09)
--- NOTE | 2018-05-30 10:33 | RAD ---
Date of service: 05/30/2018 HISTORY: clearance COMPARISON: Chest radiographs 04/19/2018. FINDINGS: LUNGS: No active pulmonary disease. PLEURA: No significant pleural effusion identified, no pneumothorax apparent. CARDIOVASCULAR: Normal. OSSEOUS STRUCTURES: No significant abnormalities. VISUALIZED UPPER ABDOMEN: Normal. OTHER FINDINGS: None. IMPRESSION: No interval acute cardiopulmonary disease appreciated.
--- NOTE | 2018-05-30 13:39 | PCM.BM ---
Treatment Plan Problems - Problems identified on initial assessmt Auditory Hallucinations Date Initiated: 05/30/18 Time Initiated: 04:43 Assessment reference: NA Status: Active Medication nonadherence Date Initiated: 05/30/18 Time Initiated: 04:44 Assessment reference: NA Status: Active Delusions Date Initiated: 05/30/18 Time Initiated: 13:38 Assessment reference: NA Status: Active Treatment assets and liabiliti Patient Assests: cooperative, self-reliant, ADL independent, physically healthy, good support system, negotiates basic needs Patient Liabilities: relationship conflicts (medication nonadherence), other (medication nonadherence) - Milieu Protocol Maintain good personal hygiene: daily Encourage regular showers, every shift Encourage regular showers, every shift Remind patient to perform daily oral care Conduct patient checks and document Observation sheet: Q15 minutes Maintain personal safety: every shift Educate patient to report safety concerns to staff, every shift Monitor environment for contraband/sharps Medication safety: Monitor for expected outcome, potential side effects: every shift, Assess barriers to learning: every shift, Assess readiness for medication education: every shift Milieu Narrative: start zyprexa 5mg bid medical consult for UTI group and supportive therapy Discharge/Continuing Care - Treatment Team Participation Patient/Family/SO Statement: start zyprexa 5mg bid medical consult for UTI group and supportive therapy
--- NOTE | 2018-05-30 18:46 | CP.PCM.CON ---
History of Present Illness - History of Present Illness History of Present Illness: 37 yo female with history of schizoaffective do admitted to psyche unit because of disorganized behaviour. Review of Systems - Review of Systems All systems: reviewed and no additional remarkable complaints except (aside from those mentioned above, 12 point system review were negative by me) Past Patient History - Tetanus Immunizations Tetanus Immunization: Unknown - Past Medical History & Family History Past Medical History?: No Past Family History: Reviewed and not pertinent - Past Social History Smoking Status: Never Smoked Chewing Tobacco Use: No Cigar Use: No Alcohol: None Drugs: Denies - CARDIAC Hx Hypertension: No - PULMONARY Hx Respiratory Disorders: No Hx Tuberculosis: No - NEUROLOGICAL Hx Seizures: No - HEENT Hx HEENT Problems: No - RENAL Hx Chronic Kidney Disease: No - ENDOCRINE/METABOLIC Hx Endocrine Disorders: Yes Other/Comment: Thyroid problem- pt unsure if hypo or hyper - HEMATOLOGICAL/ONCOLOGICAL Hx Human Immunodeficiency Virus (HIV): No - INTEGUMENTARY Hx Dermatological Problems: No - MUSCULOSKELETAL/RHEUMATOLOGICAL Hx Musculoskeletal Disorders: No - GASTROINTESTINAL Hx Gastrointestinal Disorders: No - GENITOURINARY/GYNECOLOGICAL Hx Sexually Transmitted Disorders: No - PSYCHIATRIC Hx Bipolar Disorder: Yes Hx Schizophrenia: Yes - SURGICAL HISTORY Hx Surgeries: No - ANESTHESIA Hx Anesthesia: No Meds Allergies/Adverse Reactions: Allergies Allergy/AdvReac Type Severity Reaction Status Date / Time paliperidone [From Invega] Allergy FATIGUE Verified 04/20/18 06:24 - Medications Medications: Current Medications Acetaminophen (Tylenol 325mg Tab) 650 mg PO Q4 PRN PRN Reason: Pain, moderate (4-7) Al Hydrox/Mg Hydrox/Simethicone (Maalox Plus 30 Ml) 30 ml PO Q4 PRN PRN Reason: Dyspepsia Diphenhydramine HCl (Benadryl) 50 mg IM Q6 PRN PRN Reason: Extrapyramidal S/S Unable PO Diphenhydramine HCl (Benadryl) 50 mg PO Q6 PRN PRN Reason: Extrapyramidal Symptoms Last Admin: 05/30/18 08:56 Dose: 50 mg Diphenhydramine HCl (Benadryl) 50 mg PO HS PRN PRN Reason: Sleep Haloperidol (Haldol) 5 mg PO Q4 PRN PRN Reason: Agitation Last Admin: 05/30/18 08:55 Dose: 5 mg Haloperidol Lactate (Haldol) 5 mg IM Q4 PRN PRN Reason: Agitation, Unable to Take PO Lorazepam (Ativan) 2 mg IM Q4 PRN PRN Reason: Anxiety/Agitation,Unable PO Lorazepam (Ativan) 1 mg PO Q8 PRN PRN Reason: Anxiety/Agitation Last Admin: 05/30/18 08:57 Dose: 1 mg Magnesium Hydroxide (Milk Of Magnesia) 30 ml PO HS PRN PRN Reason: Constipation Olanzapine (Zyprexa Zydis) 5 mg PO DAILY STEFANIE Last Admin: 05/30/18 09:09 Dose: Not Given Olanzapine (Zyprexa Zydis) 5 mg PO HS STEFANIE Physical Exam - Constitutional Appears: No Acute Distress - Head Exam Head Exam: ATRAUMATIC - Eye Exam Eye Exam: absent: Scleral icterus - ENT Exam ENT Exam: Mucous Membranes Moist - Neck Exam Neck exam: Negative for: Meningismus - Respiratory Exam Respiratory Exam: absent: Rales, Rhonchi, Wheezes, Respiratory Distress - Cardiovascular Exam Cardiovascular Exam: REGULAR RHYTHM, +S1, +S2 - GI/Abdominal Exam GI & Abdominal Exam: Soft. absent: Tenderness - Rectal Exam Rectal Exam: Deferred - Extremities Exam Extremities exam: Negative for: calf tenderness, pedal edema - Back Exam Back exam: NORMAL INSPECTION - Neurological Exam Neurological exam: Alert, Oriented x3 - Psychiatric Exam Psychiatric exam: Normal Affect - Skin Skin Exam: Dry, Intact Results - Vital Signs Recent Vital Signs: Last Vital Signs Temp 97.7 F 05/30/18 09:36 Pulse 77 05/30/18 09:36 Resp 20 05/30/18 09:36 BP 124/66 05/30/18 09:36 Pulse Ox 98 05/30/18 04:38 - Labs Result Diagrams: 05/29/18 22:51 05/29/18 22:51 Labs: Laboratory Results - last 24 hr 05/29/18 05/29/18 05/30/18 22:51 22:51 03:48 WBC 12.0 H RBC 4.33 Hgb 12.9 Hct 38.5 MCV 89.0 MCH 29.9 MCHC 33.6 RDW 15.0 H Plt Count 251 MPV 9.1 Neut % (Auto) 71.6 Lymph % (Auto) 20.8 Harney % (Auto) 6.3 Eos % (Auto) 0.7 Baso % (Auto) 0.6 Neut # (Auto) 8.6 H Lymph # (Auto) 2.5 Harney # (Auto) 0.8 Eos # (Auto) 0.1 Baso # (Auto) 0.1 Sodium 140 Potassium 4.0 Chloride 104 Carbon Dioxide 25 Anion Gap 15 BUN 20 H Creatinine 0.8 Est GFR ( Amer) > 60 Est GFR (Non-Af Amer) > 60 Random Glucose 142 H Calcium 9.9 Total Bilirubin 0.5 AST 98 H ALT 137 H Alkaline Phosphatase 100 Total Protein 8.2 Albumin 4.3 Globulin 3.9 Albumin/Globulin Ratio 1.1 Urine Color Urine Clarity Urine pH Ur Specific Media Urine Protein Urine Glucose (UA) Urine Ketones Urine Blood Urine Nitrate Urine Bilirubin Urine Urobilinogen Ur Leukocyte Esterase Urine RBC (Auto) Urine Microscopic WBC Ur Squamous Epith Cells Urine Opiates Screen Negative Urine Methadone Screen Negative Ur Barbiturates Screen Negative Ur Phencyclidine Scrn Negative Ur Amphetamines Screen Negative U Benzodiazepines Scrn Negative U Oth Cocaine Metabols Negative U Cannabinoids Screen Negative Alcohol, Quantitative < 10 05/30/18 03:48 WBC RBC Hgb Hct MCV MCH MCHC RDW Plt Count MPV Neut % (Auto) Lymph % (Auto) Harney % (Auto) Eos % (Auto) Baso % (Auto) Neut # (Auto) Lymph # (Auto) Harney # (Auto) Eos # (Auto) Baso # (Auto) Sodium Potassium Chloride Carbon Dioxide Anion Gap BUN Creatinine Est GFR ( Amer) Est GFR (Non-Af Amer) Random Glucose Calcium Total Bilirubin AST ALT Alkaline Phosphatase Total Protein Albumin Globulin Albumin/Globulin Ratio Urine Color Yellow Urine Clarity Cloudy Urine pH 5.0 Ur Specific Media 1.019 Urine Protein Negative Urine Glucose (UA) Neg Urine Ketones Negative Urine Blood Moderate Urine Nitrate Negative Urine Bilirubin Negative Urine Urobilinogen 0.2-1.0 Ur Leukocyte Esterase Mod Urine RBC (Auto) 5 H Urine Microscopic WBC 24 H Ur Squamous Epith Cells 5 Urine Opiates Screen Urine Methadone Screen Ur Barbiturates Screen Ur Phencyclidine Scrn Ur Amphetamines Screen U Benzodiazepines Scrn U Oth Cocaine Metabols U Cannabinoids Screen Alcohol, Quantitative Assessment & Plan (1) Disorganized behavior Status: Acute Comment: psyche is managing
[2018-05-30] MEDS ORDERED: OLANZapine 5 mg Disintegrating Tab PO SCH (22:00)
[2018-05-31] MEDS: OLANZapine 5 mg Disintegrating Tab PO SCH ×2 (09:45→21:08)
--- NOTE | 2018-05-31 11:06 | PCM.PYCHPN ---
Psychiatric Progress Note - Psychiatric Progress Note Patient seen today, length of contact: pt evaluated discussed with team chart reviewed Patient Chief Complaint: I am pato and I control world Problems Identified/Issues Discussed: pt evaluated with treatment team, floridly psychotic, with disorganized speech and thought process, pt believes she is Pato , keeps touching staff as if she is spreading her blessings on them, also reporte hearing the voice og god in her telling her to protect everybody, patient religiously preoccupied and delusional responding to internal stimuli, loose association, and tangential thought process with word salad, she is also sexually preoccupied , very labile affect alternating between anger and inappropriate laughing pt refusing medications other than zyprexa, will increase dose she denied command hallucinations, denied suicidal or homicidal ideation Medical Problems: multiple hospitalizations, hx of non compliance DSM 5 Symptoms Update: schizoaffective disorder bipolar Medication Change: Yes (increase zyprexa) Medical Record Reviewed: Yes Mental Status Examination - Cognitive Function Orientation: Person, Place Attention: Poor Concentration: Poor Association: Loose Fund of Knowledge: Poor Decription of patient's judgement and insights: poor insight and judgment - Mood Mood: Euphoric - Affect Affect: Other Additional comments: labile - Speech Speech: Loud, Pressured - Formal Thought Process Formal Thought Process: Hallucinations, Delusions, Paranoia, Loosening of associations, Flight of ideas Psychotic Thoughts and Behaviors: mormon preoccupation, paranoid and grandiose delusions - Suicidal Ideation Suicidal Ideation: No - Homicidal Ideation Homicidal Ideation: No Goal/Treatment Plan - Goal/Treatment Plan Need for Continued Stay: Severe depression anxiety, Discharge may exacerbated symptoms, Failed transitioning Progress Toward Problem(s) and Goals/Treatment Plan: increase zyprexa zydis 10mg bid medical consult for UTI group and supportive therapy
[2018-06-01] MEDS: OLANZapine 5 mg Disintegrating Tab PO SCH ×2 (09:44→21:10)
--- NOTE | 2018-06-01 18:30 | PCM.PYCHPN ---
Psychiatric Progress Note - Psychiatric Progress Note Patient seen today, length of contact: pt evaluated discussed with team chart reviewed Patient Chief Complaint: chart reviewed case discussed with team Problems Identified/Issues Discussed: alteration in mood and cognition Medical Problems: per chart Diagnostic Results: per psychiatry per medicine per nursing per social sciences instructor per recreational therapy Medication Change: No Medical Record Reviewed: Yes Consults ordered or reviewed: pt seen by hospitalist Mental Status Examination - Cognitive Function Orientation: Person, Place Attention: Poor Concentration: Poor Association: Loose Fund of Knowledge: Poor Decription of patient's judgement and insights: impaired - Mood Mood: Euphoric - Affect Affect: Other - Speech Speech: Loud, Pressured - Formal Thought Process Formal Thought Process: Hallucinations, Delusions, Paranoia, Loosening of associations, Flight of ideas - Suicidal Ideation Suicidal Ideation: No - Homicidal Ideation Homicidal Ideation: No Goal/Treatment Plan - Goal/Treatment Plan Need for Continued Stay: Severe depression anxiety, Discharge may exacerbated symptoms, Failed transitioning Progress Toward Problem(s) and Goals/Treatment Plan: inpt milieu adjust meds per status vital signs and clinical assessment per protocol and per status discharge planning in progress Estimated Date of D/C: 06/05/18 - Smoking Cessation Smoking Cessation Initiated: No
[2018-06-01] MEDS: Bacitracin OINT 15GM TOP SCH (21:38)
[2018-06-02] MEDS: OLANZapine 5 mg Disintegrating Tab PO SCH ×2 (08:47→21:02)
[2018-06-02] MEDS: Bacitracin OINT 15GM TOP SCH ×2 (09:26→21:10)
--- NOTE | 2018-06-02 20:17 | PCM.PYCHPN ---
Psychiatric Progress Note - Psychiatric Progress Note Patient seen today, length of contact: pt evaluated discussed with team chart reviewed Patient Chief Complaint: chart reviewed case discussed with team Problems Identified/Issues Discussed: alteration in mood and cognition Medical Problems: per chart Diagnostic Results: per psychiatry per medicine per nursing per social services manager per recreational therapy DSM 5 Symptoms Update: somewhat improvement in mood child like at times Medication Change: No Medical Record Reviewed: Yes Consults ordered or reviewed: pt has been seen by hospitalist Mental Status Examination - Cognitive Function Orientation: Person, Place Attention: Poor Concentration: Poor Association: Loose Fund of Knowledge: Poor Decription of patient's judgement and insights: impaired - Mood Mood: Euphoric - Affect Affect: Other - Speech Speech: Loud, Pressured - Formal Thought Process Formal Thought Process: Hallucinations, Delusions, Paranoia, Loosening of associations, Flight of ideas - Suicidal Ideation Suicidal Ideation: No - Homicidal Ideation Homicidal Ideation: No Goal/Treatment Plan - Goal/Treatment Plan Need for Continued Stay: Severe depression anxiety, Discharge may exacerbated symptoms, Failed transitioning Progress Toward Problem(s) and Goals/Treatment Plan: inpt milieu adjust meds per status vital signs and clinical assessment per protocol and per status discharge planning in progress Estimated Date of D/C: 06/05/18 - Smoking Cessation Smoking Cessation Initiated: No Reason for not providing: pt defers
[2018-06-03] MEDS: OLANZapine 10 mg Disintegrating Tab PO SCH (09:28)
[2018-06-03] MEDS: Bacitracin OINT 15GM TOP SCH ×2 (09:28→17:45)
[2018-06-03] MEDS ORDERED: Risperidone M TAB 2 MG PO STA (13:58)
--- NOTE | 2018-06-03 15:26 | PCM.PYCHPN ---
Psychiatric Progress Note - Psychiatric Progress Note Patient seen today, length of contact: pt evaluated discussed with team chart reviewed Patient Chief Complaint: I want to sing and dance Problems Identified/Issues Discussed: pt evaluated continues to be floridly psychotic, presenting with disorganized speech and thought process, continues to be religiously preoccupied believes she is bala , internally preoccupied, talking to self and responding to internal s timuli, pt is also euphoric, dancing in hallway and singing , this alternating with anger , irritability and paranoid delusions, towards staff, worrying they would hurt her , discussed with pt cross titrating zyprexa with risperidone with possible change to risperidone consta to ensure compliance she denied command hallucinations, denied suicidal or homicidal ideation Medical Problems: multiple hospitalizations, hx of non compliance DSM 5 Symptoms Update: schizoaffective disorder bipolar Medication Change: Yes (start risperidone) Medical Record Reviewed: Yes Mental Status Examination - Cognitive Function Orientation: Person, Place Attention: Poor Concentration: Poor Association: Loose Fund of Knowledge: Poor - Mood Mood: Euphoric - Affect Affect: Other - Speech Speech: Loud, Pressured - Formal Thought Process Formal Thought Process: Hallucinations, Delusions, Paranoia, Loosening of associations, Flight of ideas - Suicidal Ideation Suicidal Ideation: No - Homicidal Ideation Homicidal Ideation: No Goal/Treatment Plan - Goal/Treatment Plan Need for Continued Stay: Severe depression anxiety, Discharge may exacerbated symptoms, Failed transitioning Progress Toward Problem(s) and Goals/Treatment Plan: decrease zyprxa to 15mg start rispridone 2mg qhs and cogentin 1mg qhs follow up for psychopharmacological effects and side effect profile group and supportive therapy Estimated Date of D/C: 06/05/18
[2018-06-03] MEDS: Risperidone M TAB 2 MG PO SCH (21:04)
[2018-06-03] MEDS ORDERED: OLANZapine 10 mg Disintegrating Tab PO SCH (22:00)
[2018-06-04] MEDS: OLANZapine 10 mg Disintegrating Tab PO SCH (08:39)
[2018-06-04] MEDS: Bacitracin OINT 15GM TOP SCH ×2 (09:27→17:03)
[2018-06-04] MEDS ORDERED: Risperidone M TAB 2 MG PO STA (13:41)
--- NOTE | 2018-06-04 15:21 | PCM.PYCHPN ---
Psychiatric Progress Note - Psychiatric Progress Note Patient seen today, length of contact: pt evaluated discussed with team chart reviewed Patient Chief Complaint: I want to travel where my is Problems Identified/Issues Discussed: pt evaluated continues to be floridly psychotic,paranoid towards staff questioning if they would hurt her , presenting with disorganized speech and thought process, internally preoccupied, talking to self and responding to in ternal stimuli, labile affect, alternating between being euphoric and angry , irritability and , discussed with pt cross titrating zyprexa with risperidone with possible change to risperidone consta to ensure compliance , pt with limited insight , needs alot of encouragement to take medications she denied command hallucinations, denied suicidal or homicidal ideation Medical Problems: multiple hospitalizations, hx of non compliance DSM 5 Symptoms Update: schizoaffective disorder bipolar Medication Change: Yes (discontinue zyprexa) Medical Record Reviewed: Yes Mental Status Examination - Cognitive Function Orientation: Person, Place Attention: Poor Concentration: Poor Association: Loose Fund of Knowledge: Poor - Mood Mood: Euphoric - Affect Affect: Other - Speech Speech: Loud, Pressured - Formal Thought Process Formal Thought Process: Hallucinations, Delusions, Paranoia, Loosening of associations, Flight of ideas - Suicidal Ideation Suicidal Ideation: No - Homicidal Ideation Homicidal Ideation: No Goal/Treatment Plan - Goal/Treatment Plan Need for Continued Stay: Severe depression anxiety, Discharge may exacerbated symptoms, Failed transitioning Progress Toward Problem(s) and Goals/Treatment Plan: discontinue zyprxa increase rispridone to 2mg bid and cogentin 1mg qhs follow up for psychopharmacological effects and side effect profile group and supportive therapy Estimated Date of D/C: 06/10/18
[2018-06-04] MEDS: Risperidone M TAB 2 MG PO SCH (21:11)
[2018-06-05] MEDS ORDERED: Risperidone M TAB 2 MG PO SCH (09:00)
[2018-06-05] MEDS: Bacitracin OINT 15GM TOP SCH ×2 (09:00→17:08)
--- NOTE | 2018-06-05 15:49 | PCM.PYCHPN ---
Psychiatric Progress Note - Psychiatric Progress Note Patient seen today, length of contact: pt evaluated discussed with team chart reviewed Patient Chief Complaint: I am walking around with bala, get me out of here Problems Identified/Issues Discussed: pt evaluated , seen pacing on the unit, continues to be floridly psychotic, religiously preoccupied , believes she is communicating with bala, and he is walking her around the unit, presenting with thought blocking and internally preoccupied ,labile affect , euphoria alternating with anger , limited insight into illness , requesting to be discharged and needs encouragement to take medications, discussed increasing risperidone , and possible starting risperidone consta pt currently declining to receive injection denied command hallucinations , denied suicidal or homicidal ideation Medical Problems: multiple hospitalizations, hx of non compliance DSM 5 Symptoms Update: schizoaffective disorder bipolar Medication Change: Yes (increase risperidone ) Medical Record Reviewed: Yes Mental Status Examination - Cognitive Function Orientation: Person, Place Attention: Poor Concentration: Poor Association: Loose Fund of Knowledge: Poor - Mood Mood: Euphoric Additional comments: labile - Affect Affect: Other - Speech Speech: Loud, Pressured - Formal Thought Process Formal Thought Process: Hallucinations, Delusions, Paranoia, Loosening of associations, Flight of ideas - Suicidal Ideation Suicidal Ideation: No - Homicidal Ideation Homicidal Ideation: No Goal/Treatment Plan - Goal/Treatment Plan Need for Continued Stay: Severe depression anxiety, Discharge may exacerbated symptoms, Failed transitioning Progress Toward Problem(s) and Goals/Treatment Plan: increase rispridone to 3mg bid and cogentin 1mg bid follow up for psychopharmacological effects and side effect profile group and supportive therapy Estimated Date of D/C: 06/10/18
[2018-06-05] MEDS ORDERED: Risperidone M tab 1 MG PO SCH (22:00)
[2018-06-06] MEDS: Risperidone M tab 1 MG PO SCH (08:54)
[2018-06-06] MEDS: Bacitracin OINT 15GM TOP SCH ×2 (08:55→17:05)
--- NOTE | 2018-06-06 16:45 | PCM.PYCHPN ---
Psychiatric Progress Note - Psychiatric Progress Note Patient seen today, length of contact: pt evaluated discussed with team chart reviewed Patient Chief Complaint: I love bala I know he loves me Problems Identified/Issues Discussed: pt evaluated , continues to be psychaotic, labile, delusional religiously preoccupied , reported continues to have auditory hallucinations of god talking to her sexually preoccupied and has limited insight into illness requesting to be discharged denied command hallucinations , denied suicidal or homicidal ideation Medical Problems: multiple hospitalizations, hx of non compliance Medication Change: Yes (start haldol) Medical Record Reviewed: Yes Mental Status Examination - Cognitive Function Orientation: Person, Place Attention: Poor Concentration: Poor Association: Loose Fund of Knowledge: Poor - Mood Mood: Euphoric - Affect Affect: Other - Speech Speech: Loud, Pressured - Formal Thought Process Formal Thought Process: Hallucinations, Delusions, Paranoia, Loosening of associations, Flight of ideas - Suicidal Ideation Suicidal Ideation: No - Homicidal Ideation Homicidal Ideation: No Goal/Treatment Plan - Goal/Treatment Plan Need for Continued Stay: Severe depression anxiety, Discharge may exacerbated symptoms, Failed transitioning Progress Toward Problem(s) and Goals/Treatment Plan: will cross titrate risperidone with haldol risperidone 3mg daily haldol 5mg qhs follow up for psychopharmacological effects and side effect profile group and supportive therapy Estimated Date of D/C: 06/10/18
[2018-06-06] MEDS: Divalproex 500 mg DR(BID formulation) PO SCH (17:05)
[2018-06-07] MEDS: Divalproex 500 mg DR(BID formulation) PO SCH ×2 (09:40→17:50)
[2018-06-07] MEDS: Risperidone M tab 1 MG PO SCH (09:40)
[2018-06-07] MEDS: Bacitracin OINT 15GM TOP SCH ×2 (09:42→17:51)
--- NOTE | 2018-06-07 13:41 | PCM.PYCHPN ---
Psychiatric Progress Note - Psychiatric Progress Note Patient seen today, length of contact: pt evaluated discussed with team chart reviewed Patient Chief Complaint: how are you beautiful Problems Identified/Issues Discussed: pt evaluated ,with treatment team , religiously preoccupied, disorganized speech and thought process continues to be psychaotic, labile, delusional , reported continues to have auditory hallucinations of god talking to her sexually preoccupied and has limited insight into illness requesting to be discharged denied command hallucinations , denied suicidal or homicidal ideation Medical Problems: multiple hospitalizations, hx of non compliance DSM 5 Symptoms Update: schizoaffective disorder bipolar Medication Change: Yes (increase haldol) Medical Record Reviewed: Yes Mental Status Examination - Cognitive Function Orientation: Person, Place Attention: Poor Concentration: Poor Association: Loose Fund of Knowledge: Poor - Mood Mood: Euphoric - Affect Affect: Other - Speech Speech: Loud, Pressured - Formal Thought Process Formal Thought Process: Hallucinations, Delusions, Paranoia, Loosening of associations, Flight of ideas - Suicidal Ideation Suicidal Ideation: No - Homicidal Ideation Homicidal Ideation: No Goal/Treatment Plan - Goal/Treatment Plan Need for Continued Stay: Severe depression anxiety, Discharge may exacerbated symptoms, Failed transitioning Progress Toward Problem(s) and Goals/Treatment Plan: discontinue risperidone start haldol 5mg tid, cogentin 5mg tid follow up for psychopharmacological effects and side effect profile group and supportive therapy Estimated Date of D/C: 06/10/18
[2018-06-08] MEDS: Divalproex 500 mg DR(BID formulation) PO SCH ×2 (09:21→17:55)
--- NOTE | 2018-06-08 12:58 | PCM.PYCHPN ---
Psychiatric Progress Note - Psychiatric Progress Note Patient seen today, length of contact: pt evaluated discussed with team chart reviewed Patient Chief Complaint: I AM VERY HAPPY WITH GOD Problems Identified/Issues Discussed: pt evaluated ,less irritable and less hostile,and less paranoid continues to be labile , hypomanic, religiously preoccupied, continues to hear voice of god denied command hallucinations , denied suicidal or homicidal ideation Medical Problems: multiple hospitalizations, hx of non compliance DSM 5 Symptoms Update: SCHIZOAFFECTIVE DISORDER Medication Change: No (increase haldol) Medical Record Reviewed: Yes Mental Status Examination - Cognitive Function Orientation: Person, Place Attention: Poor Concentration: Poor Association: Loose Fund of Knowledge: Poor - Mood Mood: Euphoric - Affect Affect: Other - Speech Speech: Loud, Pressured - Formal Thought Process Formal Thought Process: Hallucinations, Delusions, Paranoia, Loosening of associations, Flight of ideas - Suicidal Ideation Suicidal Ideation: No - Homicidal Ideation Homicidal Ideation: No Goal/Treatment Plan - Goal/Treatment Plan Need for Continued Stay: Severe depression anxiety, Discharge may exacerbated symptoms, Failed transitioning Progress Toward Problem(s) and Goals/Treatment Plan: haldol 5mg tid, cogentin 5mg tid follow up for psychopharmacological effects and side effect profile group and supportive therapy Estimated Date of D/C: 06/10/18
[2018-06-09] MEDS: Divalproex 500 mg DR(BID formulation) PO SCH ×2 (09:25→17:25)
[2018-06-09] MEDS: Bacitracin OINT 15GM TOP SCH ×2 (09:25→17:25)
--- NOTE | 2018-06-09 13:49 | PCM.PYCHPN ---
Psychiatric Progress Note - Psychiatric Progress Note Patient seen today, length of contact: pt evaluated discussed with team chart reviewed Patient Chief Complaint: I am feeling better today Problems Identified/Issues Discussed: pt evaluated ,less irritable and less hostile more cooperative with staff , interacting with other patients continues to be labile , hypomanic, religiously preoccupied, continues to hear voice of god denied command hallucinations , denied suicidal or homicidal ideation Medical Problems: multiple hospitalizations, hx of non compliance Medication Change: No Medical Record Reviewed: Yes Mental Status Examination - Cognitive Function Orientation: Person, Place Attention: Poor Concentration: Poor Association: Loose Fund of Knowledge: Poor - Mood Mood: Euphoric - Affect Affect: Other - Speech Speech: Loud, Pressured - Formal Thought Process Formal Thought Process: Hallucinations, Delusions, Paranoia, Loosening of associations, Flight of ideas - Suicidal Ideation Suicidal Ideation: No - Homicidal Ideation Homicidal Ideation: No Goal/Treatment Plan - Goal/Treatment Plan Need for Continued Stay: Severe depression anxiety, Discharge may exacerbated symptoms, Failed transitioning Progress Toward Problem(s) and Goals/Treatment Plan: haldol 5mg tid, cogentin 5mg tid follow up for psychopharmacological effects and side effect profile group and supportive therapy Estimated Date of D/C: 06/10/18
[2018-06-10] MEDS: Bacitracin OINT 15GM TOP SCH ×2 (08:42→17:51)
[2018-06-10] MEDS: Divalproex 500 mg DR(BID formulation) PO SCH ×2 (08:43→17:51)
[2018-06-11] MEDS: Divalproex 500 mg DR(BID formulation) PO SCH ×2 (09:20→18:00)
[2018-06-11] MEDS: Bacitracin OINT 15GM TOP SCH ×2 (09:24→18:02)
--- NOTE | 2018-06-11 13:12 | PCM.PYCHPN ---
Psychiatric Progress Note - Psychiatric Progress Note Patient seen today, length of contact: pt evaluated discussed with team chart reviewed Patient Chief Complaint: Can I go to [facility], my will not take me back Problems Identified/Issues Discussed: pt evaluated ,less labile, speech less disorganized, thought process more goal directed, pt reported feeling drowsy with the increase in dose of haldol, reported feeling depressed as she knows her would not take her back , pt unsure where to reside. denied any current command hallucinations denied suicidal or homicidal ideation Medical Problems: multiple hospitalizations, hx of non compliance DSM 5 Symptoms Update: schizoaffective disorder bipolar Medication Change: Yes (decrease haldol) Medical Record Reviewed: Yes Mental Status Examination - Cognitive Function Orientation: Person, Place Attention: WNL Concentration: Poor Association: WNL Fund of Knowledge: Poor - Mood Mood: Euphoric - Affect Affect: Other - Speech Speech: Loud, Pressured - Formal Thought Process Formal Thought Process: Hallucinations, Delusions, Paranoia, Loosening of associations, Flight of ideas - Suicidal Ideation Suicidal Ideation: No - Homicidal Ideation Homicidal Ideation: No Goal/Treatment Plan - Goal/Treatment Plan Need for Continued Stay: Severe depression anxiety, Discharge may exacerbated symptoms, Failed transitioning Progress Toward Problem(s) and Goals/Treatment Plan: haldol 5mg tid, cogentin 0.5mg tid follow up for psychopharmacological effects and side effect profile group and supportive therapy pediatric social worker to arrange for disposition planning Estimated Date of D/C: 06/14/18
[2018-06-12] MEDS: Bacitracin OINT 15GM TOP SCH ×3 (09:00→17:29)
[2018-06-12] MEDS: Divalproex 500 mg DR(BID formulation) PO SCH ×2 (09:50→17:28)
--- NOTE | 2018-06-12 15:00 | PCM.PYCHPN ---
Psychiatric Progress Note - Psychiatric Progress Note Patient seen today, length of contact: pt evaluated discussed with team chart reviewed Patient Chief Complaint: I am not sure if I am homeless or not Problems Identified/Issues Discussed: pt evaluated ,reported feeling better with decrease in haldol, noted to be tremulous , pt less labile yet continues to appear intenally and religiously preoccupied , discussed crosstitrating haldol to risperidone, discussed, possible starting depot medication to ensure compliance, pt denied command hallucinations denied suicidal or homicidal ideation Medical Problems: multiple hospitalizations, hx of non compliance Medication Change: Yes (cross titrate haldol with risperidone) Medical Record Reviewed: Yes Mental Status Examination - Cognitive Function Orientation: Person, Place Attention: WNL Concentration: Poor Association: WNL Fund of Knowledge: Poor - Mood Mood: Euphoric - Affect Affect: Other - Speech Speech: Loud, Pressured - Formal Thought Process Formal Thought Process: Hallucinations, Delusions, Paranoia, Loosening of associations, Flight of ideas - Suicidal Ideation Suicidal Ideation: No - Homicidal Ideation Homicidal Ideation: No Goal/Treatment Plan - Goal/Treatment Plan Need for Continued Stay: Severe depression anxiety, Discharge may exacerbated symptoms, Failed transitioning Progress Toward Problem(s) and Goals/Treatment Plan: cross titrate haldol with risperidone, risperidone 3mg qhs haldol 5mg bid and , cogentin 0.5mg tid follow up for psychopharmacological effects and side effect profile group and supportive therapy oncology social worker to arrange for disposition planning Estimated Date of D/C: 06/14/18
[2018-06-12] MEDS ORDERED: Risperidone M tab 1 MG PO SCH (22:00)
[2018-06-13] MEDS: Divalproex 500 mg DR(BID formulation) PO SCH ×2 (08:58→17:45)
[2018-06-13] MEDS: Bacitracin OINT 15GM TOP SCH ×2 (08:59→17:45)
--- NOTE | 2018-06-13 14:49 | PCM.PYCHPN ---
Psychiatric Progress Note - Psychiatric Progress Note Patient seen today, length of contact: pt evaluated discussed with team chart reviewed Patient Chief Complaint: I want to continue with haldol Problems Identified/Issues Discussed: pt evaluated ,less labile, speech less disorganized, thought process more goal directed, continues to be religiously preoccupied with the delusion of being bala bride , discussed with pt cross titrating haldol with risperidone with the goal to start risperidone const, pt declined reported feeling better with haldol pt denied command hallucinations, denied suicidal or homicidal ideation Medical Problems: multiple hospitalizations, hx of non compliance DSM 5 Symptoms Update: schizoaffective disorder bipolar Medication Change: Yes (increase cogentin) Medical Record Reviewed: Yes Mental Status Examination - Cognitive Function Orientation: Person, Place Attention: WNL Concentration: Poor Association: WNL Fund of Knowledge: Poor - Mood Mood: Euphoric - Affect Affect: Other - Speech Speech: Loud, Pressured - Formal Thought Process Formal Thought Process: Hallucinations, Delusions, Paranoia, Loosening of associations, Flight of ideas - Suicidal Ideation Suicidal Ideation: No - Homicidal Ideation Homicidal Ideation: No Goal/Treatment Plan - Goal/Treatment Plan Need for Continued Stay: Severe depression anxiety, Discharge may exacerbated symptoms, Failed transitioning Progress Toward Problem(s) and Goals/Treatment Plan: discontinue risperidone haldol 5mg tid and , cogentin 1mg tid follow up for psychopharmacological effects and side effect profile group and supportive therapy social media marketing specialist to arrange for disposition planning Estimated Date of D/C: 06/21/18
[2018-06-14] MEDS: Divalproex 500 mg DR(BID formulation) PO SCH (08:45)
[2018-06-14] MEDS: Bacitracin OINT 15GM TOP SCH ×2 (08:46→17:03)
--- NOTE | 2018-06-14 15:30 | PCM.PYCHPN ---
Psychiatric Progress Note - Psychiatric Progress Note Patient seen today, length of contact: pt evaluated discussed with team chart reviewed Patient Chief Complaint: I can take care of myself I do not need my family Problems Identified/Issues Discussed: pt evaluated with treatment team, continues to be religiously preoccupied , speech continues to be overproductive, thought process tangential, continues to be hypomanic, discussed increasing depakote as depakote level noted to be 48, encouraged medication compliance pt denied command hallucinations, denied suicidal or homicidal ideation Medical Problems: multiple hospitalizations, hx of non compliance DSM 5 Symptoms Update: schizoaffective disorder bipolar type Medication Change: Yes (increase depakote ) Medical Record Reviewed: Yes Mental Status Examination - Cognitive Function Orientation: Person, Place Attention: WNL Concentration: Poor Association: WNL Fund of Knowledge: Poor - Mood Mood: Euphoric - Affect Affect: Other - Speech Speech: Loud, Pressured - Formal Thought Process Formal Thought Process: Hallucinations, Delusions, Paranoia, Loosening of associations, Flight of ideas - Suicidal Ideation Suicidal Ideation: No - Homicidal Ideation Homicidal Ideation: No Goal/Treatment Plan - Goal/Treatment Plan Need for Continued Stay: Severe depression anxiety, Discharge may exacerbated symptoms, Failed transitioning Progress Toward Problem(s) and Goals/Treatment Plan: haldol 5mg tid and , cogentin 1mg tid depakote 500mg daily and 750mg qhs/ depakote level 48 follow up for psychopharmacological effects and side effect profile group and supportive therapy social worker aide to arrange for disposition planning Estimated Date of D/C: 06/21/18
[2018-06-14] MEDS: Divalproex 250 mg DR(BID formulation) PO SCH (21:05)
--- NOTE | 2018-06-15 08:43 | PCM.PYCHPN ---
Psychiatric Progress Note - Psychiatric Progress Note Patient seen today, length of contact: pt evaluated discussed with team chart reviewed Patient Chief Complaint: pt has remained guarded and suspicious with hypomania and still with the poor insight and judgement and need further stabilization.Depakote increased yesterday and doing better tolerating meds with no side effects. Medication Change: Yes (increase depakote ) Medical Record Reviewed: Yes Mental Status Examination - Cognitive Function Orientation: Person, Place Attention: WNL Concentration: Poor Association: WNL Fund of Knowledge: Poor - Mood Mood: Euphoric - Affect Affect: Other - Speech Speech: Loud, Pressured - Formal Thought Process Formal Thought Process: Hallucinations, Delusions, Paranoia, Loosening of associations, Flight of ideas - Suicidal Ideation Suicidal Ideation: No - Homicidal Ideation Homicidal Ideation: No Goal/Treatment Plan - Goal/Treatment Plan Need for Continued Stay: Severe depression anxiety, Discharge may exacerbated symptoms, Failed transitioning Progress Toward Problem(s) and Goals/Treatment Plan: will continue to titrate depakote and haldol to stabilize mood and psychosis and engage pt in therapy. Disposition as per dr esparza Estimated Date of D/C: 06/21/18
[2018-06-15] MEDS: Bacitracin OINT 15GM TOP SCH ×2 (08:46→17:25)
[2018-06-15] MEDS: Divalproex 500 mg DR(BID formulation) PO SCH (08:46)
[2018-06-15] MEDS: Divalproex 250 mg DR(BID formulation) PO SCH (21:13)
[2018-06-16] MEDS: Divalproex 500 mg DR(BID formulation) PO SCH (09:22)
[2018-06-16] MEDS: Bacitracin OINT 15GM TOP SCH ×2 (09:23→17:56)
[2018-06-16] MEDS: Divalproex 250 mg DR(BID formulation) PO SCH (21:13)
--- NOTE | 2018-06-17 08:40 | PCM.BM ---
Treatment Plan Problems - Problems identified on initial assessmt Auditory Hallucinations Date Initiated: 05/30/18 Time Initiated: 04:43 Assessment reference: NA Status: Active Medication nonadherence Date Initiated: 05/30/18 Time Initiated: 04:44 Assessment reference: NA Status: Active Delusions Date Initiated: 05/30/18 Time Initiated: 13:38 Assessment reference: NA Status: Active Treatment assets and liabiliti Patient Assests: cooperative, self-reliant, ADL independent, physically healthy, good support system, negotiates basic needs Patient Liabilities: relationship conflicts (medication nonadherence), other (medication nonadherence) - Milieu Protocol Maintain good personal hygiene: daily Encourage regular showers, every shift Encourage regular showers, every shift Remind patient to perform daily oral care Conduct patient checks and document Observation sheet: Q15 minutes Maintain personal safety: every shift Educate patient to report safety concerns to staff, every shift Monitor environment for contraband/sharps Medication safety: Monitor for expected outcome, potential side effects: every shift, Assess barriers to learning: every shift, Assess readiness for medication education: every shift Milieu Narrative: will continue to titrate depakote and haldol to stabilize mood and psychosis and engage pt in therapy. Disposition as per dr esparza Family Contact Family involvement: Family/SO is involved Family contact: Patient agrees to contact, Family has been contacted by patient Family contact name: Kevin - Family contacted how many times per week?: 3 Family contact comment: [phone] - Goals for Treatment Patient goals for treatment: Pt unable to establish goals at this time as she is severely manic and psychotic with paranoia and internal and external preoccupation. Discharge/Continuing Care - Education Needs Education Needs: Patient Medication, Patient Diagnosis/Disease Process, Patient Coping Skills, Patient Aftercare Safety Plan - Discharge Discharge Criteria: Tolerates medication w/o severe side effects, Free of Suicidal thoughts, Free of paranoid thoughts, Free of agitation, Normal sleep pattern, Ability to care for self, Reduction of target symptoms Discharge to:: Home, With Family, Half-Way - Treatment Team Participation Patient/Family/SO Statement: will continue to titrate depakote and haldol to stabilize mood and psychosis and engage pt in therapy. Disposition as per dr esparza Discussed with Family/SO: No Was Patient/Family/SO present at Treatment Team Meeting: Yes Treatment Plan Review - Problem Auditory Hallucinations Time Initiated: 04:43 Medication nonadherence Time Initiated: 04:44 Delusions Time Initiated: 13:38 - Discharge / Continuing Care Discharge to:: Home, With Family, Half-Way (Pt still presents as paranoid and bizarre with pressured speech and labile mood. Pt spoke about her wanting to be discharged to the streets. )
[2018-06-17] MEDS: Divalproex 500 mg DR(BID formulation) PO SCH (10:00)
--- NOTE | 2018-06-17 12:42 | PCM.PYCHPN ---
Psychiatric Progress Note - Psychiatric Progress Note Patient seen today, length of contact: pt evaluated discussed with team chart reviewed Patient Chief Complaint: I am happy because my cousin and aunt visited me yesterday Problems Identified/Issues Discussed: pt evaluated , less labile and less manic, speech less pressured, currently overproductive, thought process less disorganized, pt religiously preoccupied but denied any current auditory hallucinations , no reported side effects of medication, pt denied suicidal or homicidal ideation Medical Problems: multiple hospitalizations, hx of non compliance DSM 5 Symptoms Update: schizoaffective disorder bipolar Medication Change: No Medical Record Reviewed: Yes Mental Status Examination - Cognitive Function Orientation: Person, Place Attention: WNL Concentration: WNL Association: WNL Fund of Knowledge: Poor Decription of patient's judgement and insights: poor insight and judgment - Mood Mood: Neutral - Affect Affect: Broad, Other - Speech Speech: Pressured - Formal Thought Process Formal Thought Process: Delusions Psychotic Thoughts and Behaviors: episcopalian preoccupation - Suicidal Ideation Suicidal Ideation: No - Homicidal Ideation Homicidal Ideation: No Goal/Treatment Plan - Goal/Treatment Plan Need for Continued Stay: Severe depression anxiety, Discharge may exacerbated symptoms, Failed transitioning Progress Toward Problem(s) and Goals/Treatment Plan: haldol 5mg tid and , cogentin 1mg tid depakote 500mg daily and 750mg qhs/ follow up on depakote level 06/19 follow up for psychopharmacological effects and side effect profile group and supportive therapy drug abuse social worker to arrange for disposition planning Estimated Date of D/C: 06/21/18
[2018-06-17] MEDS: Divalproex 250 mg DR(BID formulation) PO SCH (21:29)
[2018-06-18] MEDS: Divalproex 500 mg DR(BID formulation) PO SCH (08:58)
--- NOTE | 2018-06-18 14:54 | PCM.PYCHPN ---
Psychiatric Progress Note - Psychiatric Progress Note Patient seen today, length of contact: pt evaluated discussed with team chart reviewed Patient Chief Complaint: I am glad I got in touch with my Problems Identified/Issues Discussed: pt evaluated ,affect less labile , speech less pressured,e, thought process more goal directed , denied any current auditory hallucinations , no reported side effects of medication, discussed with pt starting injection medication to ensure compliance, pt declined , education provided in reference to importance of compliance on discharge , pt denied suicidal or homicidal ideation Medical Problems: multiple hospitalizations, hx of non compliance DSM 5 Symptoms Update: schizoaffective disorder bipolar Medication Change: No Medical Record Reviewed: Yes Mental Status Examination - Cognitive Function Orientation: Person, Place Attention: WNL Concentration: WNL Association: WNL Fund of Knowledge: Poor Decription of patient's judgement and insights: poor insight and judgment - Mood Mood: Neutral - Affect Affect: Broad, Other - Speech Speech: Pressured - Formal Thought Process Formal Thought Process: Delusions Psychotic Thoughts and Behaviors: buddhist preoccupation - Suicidal Ideation Suicidal Ideation: No - Homicidal Ideation Homicidal Ideation: No Goal/Treatment Plan - Goal/Treatment Plan Need for Continued Stay: Severe depression anxiety, Discharge may exacerbated symptoms, Failed transitioning Progress Toward Problem(s) and Goals/Treatment Plan: haldol 5mg tid and , cogentin 1mg tid depakote 500mg daily and 750mg qhs/ follow up on depakote level 06/19 follow up for psychopharmacological effects and side effect profile group and supportive therapy aids social worker to arrange for disposition planning Estimated Date of D/C: 06/21/18
[2018-06-18] MEDS: Divalproex 250 mg DR(BID formulation) PO SCH (21:12)
[2018-06-19] MEDS: Divalproex 500 mg DR(BID formulation) PO SCH (08:27)
[2018-06-19 11:18] VITALS: BP 96/71; PULSE 79; RESP 17; TEMP 98.5
--- NOTE | 2018-06-19 11:27 | PCM.PYCHDC ---
Mental Status Examination - Mental Status Examination Orientation: Person, Place, Situation Memory: Intact Mood: Neutral Speech: Appropriate Attention: WNL Concentration: WNL Association: WNL Fund of Knowledge: WNL Formal Thought Process: Circumstantial Description of patient's judgement and insight: poor insight and judgment Psychotic Thoughts and Behaviors: rpt on discharge, denied perceptual disturbances, non elicited Suicidal Ideation: No Current Homicidal Ideation?: No Discharge Summary - Discharge Note Reason for Hospitalization: pt is 37 ys old female with previous psychiatric diagnosis of schizoaffective disorder bipolar type, non compliant with medications or follow up, brought to ER by EMS after exhibiting disorganized behavior on the street pt has been decompensating, verbally aggressive to family, poor sleep,wandering on the street , having spending sprees, not attending to her personal hygiene on evaluation, pt presenting with disorganized thought process , internally preoccupied with thought blocking and appears responding to internal stimuli , pt stated she hears god talking to her telling what to do and that he loves her, with spiritism preoccupation, pt also having labile affect at one instance chanting and laughing loud alternating with becoming angry, irritable, domineering and verbally threatening stating she does not need help pt denied command hallucinations, denied suicidal or homicidal ideation Laboratory Data: Abnormal Lab Results 06/19/18 07:46 Valproic Acid 76.2 Consultations:: List each consultation separately and include: 1. Reason for request. 2. Findings. 3. Follow-up Summary of Hospital Course include:: 1. Description of specific treatment plan utilized for patients during their course of treatmen. 2. Summarize the time- course for resolution of acute symptoms and/or regressed behaviors. 3. Describe issues identified and worked on during hospitalization. 4. Describe medication utilized. 5. Describe medical problems identified and treated. 6. Reassessment of suicide risk Summary of Hospital Course: pt on admission was restarted on zyprexa, it was gradually increased to 20mg daily, pt continued to be manic, disorganized , religiously and sexually preoccupied zyprexa was cross tapered with risperidone and pt was placed on 6mg risperidone with poor response risperidone was crosstapered with haldol, pt was placed on 15mg haldol with cogentin , pt also was placed on depakote 500mg daily and 750mg qhs, depakote level was noted to be 74 on discharge pt was attending groups , compliant with medications, no reported or noted side effects pt was offered to be started on haldol decanoate but she declined, pt was also offered referral to [facility] but she declined on discharge a meeting was held with upon pt consent, advised about importance of compliance with medications and follow up appointments pt on discharge denied perceptual disturbances denied suicidal or homicidal ideation , follow up was arranged by nursing home social worker at [facility] - Diagnosis (1) Disorganized behavior Current Visit: Yes Status: Acute - Final Diagnosis (DSM 5) Condition upon Discharge: STABLE DSM 5: SCHIZOAFFECTIVE DISORDER BIPOLAR Disposition: HOME/ ROUTINE Follow-up Treatment Plan: haldol 5mg tid and , cogentin 1mg tid depakote 500mg daily and 750mg qhs/ follow up on depakote level 06/19 follow up for psychopharmacological effects and side effect profile group and supportive therapy nursing home social worker to arrange for disposition planning Prescriptions/Medication Reconciliation: Benztropine [Cogentin] 1 mg PO BID 30 Days #60 tab Benztropine [Cogentin] 1 mg PO HS 30 Days #30 tab Divalproex [Depakote DR(*BID*)] 750 mg PO HS 30 Days #90 tcp Divalproex [Depakote DR(*BID*)] 500 mg PO DAILY 30 Days #30 tcp Haloperidol [Haldol] 5 mg PO HS 30 Days #30 tab Haloperidol [Haldol] 5 mg PO BID 30 Days #60 tab - Antipsychotic Medications Pt discharged on 2 or more routine antipsychotic medications: No
== END 2018-06-19 12:33 | disposition home or self-care (01) | DRG 430 ==
LOC: H.ER 21:25 → H.ERHOLD 05-30 01:52 → H.PSYCH 05-30 04:10
PROVIDERS: ADMIT Psychiatry & Neurology Psychiatry; ATTEND Psychiatry & Neurology Psychiatry
PROC: GZ56ZZZ Individual Psychotherapy, Supportive (ICD-10-PCS; 2018-05-30)
PROC: GZ51ZZZ Individual Psychotherapy, Behavioral (ICD-10-PCS; 2018-05-30)
PROC: GZHZZZZ Group Psychotherapy (ICD-10-PCS; principal; 2018-06-05)
DX: F25.0 Schizoaffective disorder, bipolar type (principal); N39.0 Urinary tract infection, site not specified; Z91.14 Patient's other noncompliance with medication regimen; Z91.19 Patient's noncompliance with other medical treatment and regimen; Z91.83 Wandering in diseases classified elsewhere; R40.0 Somnolence